=== PATIENT | male | born 1955 ===

== ENCOUNTER 2017-10-17 11:45 | Inpatient (IN) | payer MEDICAID ==
--- NOTE | 2017-10-17 13:06 | C.PDOC ---
History Of Present Illness 62yo male, presents to ER for evaluation of chronic leg pain. Patient is also requesting detox for alcohol abuse. He denies any chest pain, shortness of breath, headache. No other medical complaints. Time Seen by Provider: 10/17/17 12:45 Chief Complaint (Nursing): Substance Abuse History Per: Patient History/Exam Limitations: no limitations Onset/Duration Of Symptoms: Persistent Current Symptoms Are (Timing): Still Present Modifying Factor(s): Alcohol Past Medical History Reviewed: Historical Data, Nursing Documentation, Vital Signs Vital Signs: Last Vital Signs Temp 98.9 F 10/17/17 15:04 Pulse 129 H 10/17/17 15:04 Resp 18 10/17/17 15:04 BP 117/65 10/17/17 15:04 Pulse Ox 98 10/17/17 15:04 - Medical History PMH: Seizures (epilepsy) Surgical History: No Surg Hx Family History: States: No Known Family Hx - Social History Hx Alcohol Use: Yes Hx Substance Use: No - Immunization History Hx Tetanus Toxoid Vaccination: No Hx Influenza Vaccination: No Hx Pneumococcal Vaccination: No Review Of Systems Except As Marked, All Systems Reviewed And Found Negative. Cardiovascular: Negative for: Chest Pain Respiratory: Negative for: Shortness of Breath Gastrointestinal: Negative for: Abdominal Pain Neurological: Negative for: Headache Psych: Positive for: Other (requesting detox) Physical Exam - Physical Exam Appears: No Acute Distress Skin: Normal Color Extremity: Normal ROM (all extremities), Other (lower extremities with chronic venous stasuis changed with shallow ulcerations and pruritus) Neurological/Psych: Oriented x3, Normal Speech, Normal Cognition ED Course And Treatment - Laboratory Results Result Diagrams: 10/17/17 13:33 10/17/17 13:33 O2 Sat by Pulse Oximetry: 100 (RA) Pulse Ox Interpretation: Normal Medical Decision Making Medical Decision Making: Impression: Chronic alcohol abuse Plan: -- Crisis eval -- medical clearance Patient with mild alcohol withdrawl, tachycardic, will treat with PO ativan. Patient also with chronic venous stasis changes, bilat LE. Minor ulcerations, will start PO Anb. Pending podiatry eval, probable admission to detox. Disposition - Disposition Disposition: HOSPITALIZED Disposition Time: 15:36 Condition: STABLE Forms: [employer] (Kinyarwanda) - Clinical Impression Clinical Impression: Alcohol abuse, Alcohol withdrawal, Venous stasis dermatitis - Scribe Statement The provider has reviewed the documentation as recorded by the Scribe (Precious Cramer) Provider Attestation: All medical record entries made by the Scribe were at my direction and personally dictated by me. I have reviewed the chart and agree that the record accurately reflects my personal performance of the history, physical exam, medical decision making, and the department course for this patient. I have also personally directed, reviewed, and agree with the discharge instructions and disposition. Physician Patient Turnover Patient Signed Over To: Dave Vaca Handoff Comments: pending podiatry eval and final dispo detox vs medicine
[2017-10-17 13:39] LABS: BASO # 0.1 K/uL (0.0-0.2); BASO % 0.7 % (0.0-2.0); EOS # 0.7 K/uL (0.0-0.7); EOS % 7.6 % (0.0-4.0); HEMOGLOBIN 13.1 g/dL (12.0-18.0); LYMPH # 0.9 K/uL (1.0-4.3); LYMPH % 10.9 % (20.0-40.0); MEAN CELL VOLUME 89.1 fL (80.0-94.0); MEAN CORPUSCULAR HEMOGLOBIN 30.1 pg (27.0-31.0); MEAN CORPUSCULAR HGB CONC 33.8 g/dL (33.0-37.0); MEAN PLATELET VOLUME 7.4 fL (7.2-11.7); MONO # 0.8 K/uL (0.0-0.8); MONO % 8.7 % (0.0-10.0); NEUT # 6.2 K/uL (1.8-7.0); NEUT % 72.1 % (50.0-75.0); NRBC % 0.1 % (0.0-2.0); RBC 4.34 Mil/uL (4.40-5.90); RED CELL DISTRIBUTION WIDTH 14.9 % (11.5-14.5); WHITE BLOOD COUNT 8.6 K/uL (4.8-10.8)
[2017-10-17 13:47] LABS: SQUAMOUS EPITHIAL < 1 /hpf (0-5); URINE BILIRUBIN NEGATIVE (NEGATIVE); URINE BLOOD 2+ (NEGATIVE); URINE CLARITY Clear (Clear); URINE COLOR Yellow (YELLOW); URINE GLUCOSE (UA) NORMAL (Normal); URINE LEUKOCYTE ESTERASE NEG Leu/uL (Negative); URINE NITRATE NEGATIVE (NEGATIVE); URINE PROTEIN 2+ mg/dL (NEGATIVE)
[2017-10-17 14:01] LABS: ALB/GLOB RATIO 0.8 (1.0-2.1); ALBUMIN 3.4 g/dL (3.5-5.0); ALT/SGPT 28 U/L (21-72); AST/SGOT 63 U/L (17-59); BARBITURATES, UR NEGATIVE (NEGATIVE); BENZODIAZEPINES, UR NEGATIVE (NEGATIVE); BLOOD UREA NITROGEN 2 mg/dL (9-20); CALCIUM 8.2 mg/dl (8.6-10.4); GFR AFRICAN-AMERICAN > 60; GFR NON-AFRICAN AMERICAN > 60; OPIATES, UR NEGATIVE (NEGATIVE); PHENCYCLIDINE, UR NEGATIVE (NEGATIVE)
--- NOTE | 2017-10-17 16:47 | CP.PCM.CON ---
History of Present Illness - History of Present Illness History of Present Illness: Podiatry Consult Note- Dr. Starr: This is a 62 yo undomiciled male patient who is seen in the ED today for b/l leg pain. Pt states that he is here for detox due to his alcohol abuse. Pt says that his legs swell sometimes and that he has dry skin to his legs. Pt appears lethargic during interview and is requesting a bed to sleep. Does complain of some slight tenderness to the anterior legs b/l, denies itchiness. Denies any other pedal complaints. Denied f/n/v/c/sob/cp/weakness or dizziness. Review of Systems - Review of Systems Review of Systems: All systems reviewed and found neg outside HPI Past Patient History - Past Social History Smoking Status: Never Smoked - NEUROLOGICAL Hx Seizures: Yes (epilepsy) - PSYCHIATRIC Hx Substance Use: No - SURGICAL HISTORY Hx Surgeries: No Meds Allergies/Adverse Reactions: Allergies Allergy/AdvReac Type Severity Reaction Status Date / Time No Known Allergies Allergy Verified 10/17/17 11:58 Physical Exam - Constitutional Appears: No Acute Distress, Unkempt - Extremities Exam Additional comments: BL LE exam: VASC- pedal pulses are palpable bl, skin temp runs warm to cool (proximal to distal) bl, cap refill < 3 sec to all digits, +1 pitting edema noted to b/l ant leg NEURO- gross and protective pedal sensation are intact bl DERM- lichenification noted to anterior legs b/l, small and superficial ulceration noted to anterior right leg, neg ulcerations left leg, b/l anterior legs appear glossy (consistent with venous stasis dermatitis), no signs infection, neg increased warmth, neg fluctuance MSK:slight tenderness to palp ant legs b/l, neg pain on compression post legs b/ l - Psychiatric Exam Psychiatric exam: Normal Affect, Normal Mood Results - Vital Signs Recent Vital Signs: Last Vital Signs Temp 98.9 F 10/17/17 15:04 Pulse 129 H 10/17/17 15:04 Resp 18 10/17/17 15:04 BP 117/65 10/17/17 15:04 Pulse Ox 100 10/17/17 15:38 - Labs Result Diagrams: 10/17/17 13:33 10/17/17 13:33 Labs: Laboratory Results - last 24 hr 10/17/17 10/17/17 10/17/17 13:33 13:33 13:33 WBC 8.6 RBC 4.34 L Hgb 13.1 Hct 38.6 MCV 89.1 MCH 30.1 MCHC 33.8 RDW 14.9 H Plt Count 275 MPV 7.4 Neut % (Auto) 72.1 Lymph % (Auto) 10.9 L [place] % (Auto) 8.7 Eos % (Auto) 7.6 H Baso % (Auto) 0.7 Neut # 6.2 Lymph # 0.9 L [place] # 0.8 Eos # 0.7 Baso # 0.1 Sodium 132 Potassium 3.4 L Chloride 97 L Carbon Dioxide 28 Anion Gap 11 BUN 2 L Creatinine 0.6 L Est GFR ( Amer) > 60 Est GFR (Non-Af Amer) > 60 Random Glucose 123 H Calcium 8.2 L Total Bilirubin 0.8 AST 63 H ALT 28 Alkaline Phosphatase 53 Total Protein 7.5 Albumin 3.4 L Globulin 4.1 H Albumin/Globulin Ratio 0.8 L Urine Color Yellow Urine Clarity Clear Urine pH 6.0 Ur Specific [place] 1.008 Urine Protein 2+ H Urine Glucose (UA) Normal Urine Ketones Negative Urine Blood 2+ H Urine Nitrate Negative Urine Bilirubin Negative Urine Urobilinogen 2.0 Ur Leukocyte Esterase Neg Urine WBC (Auto) < 1 Urine RBC (Auto) 24 H Ur Squamous Epith Cells < 1 Urine Opiates Screen Urine Methadone Screen Ur Barbiturates Screen Ur Phencyclidine Scrn Ur Amphetamines Screen U Benzodiazepines Scrn U Oth Cocaine Metabols U Cannabinoids Screen Alcohol, Quantitative 34 H 10/17/17 13:33 WBC RBC Hgb Hct MCV MCH MCHC RDW Plt Count MPV Neut % (Auto) Lymph % (Auto) [place] % (Auto) Eos % (Auto) Baso % (Auto) Neut # Lymph # [place] # Eos # Baso # Sodium Potassium Chloride Carbon Dioxide Anion Gap BUN Creatinine Est GFR ( Amer) Est GFR (Non-Af Amer) Random Glucose Calcium Total Bilirubin AST ALT Alkaline Phosphatase Total Protein Albumin Globulin Albumin/Globulin Ratio Urine Color Urine Clarity Urine pH Ur Specific [place] Urine Protein Urine Glucose (UA) Urine Ketones Urine Blood Urine Nitrate Urine Bilirubin Urine Urobilinogen Ur Leukocyte Esterase Urine WBC (Auto) Urine RBC (Auto) Ur Squamous Epith Cells Urine Opiates Screen Negative Urine Methadone Screen Negative Ur Barbiturates Screen Negative Ur Phencyclidine Scrn Negative Ur Amphetamines Screen Negative U Benzodiazepines Scrn Negative U Oth Cocaine Metabols Negative U Cannabinoids Screen Negative Alcohol, Quantitative Assessment & Plan - Assessment and Plan (Free Text) Assessment: 62 yo male patient with chronic venous stasis dermatitis b/l lower extremities, presents for alcohol detox Plan: Pt S&E at bedside in ED Plan discussed with Dr. Starr and Dr. Vaca Chart, labs and vitals reviewed Recommended bactroban ointment be applied bid to right ant leg wound and ALIE compression wraps to b/l LE Stable per podiatry
[2017-10-17] MEDS ORDERED: Thiamine 100 mg/ml Inj IV ONE (17:34)
[2017-10-17] MEDS ORDERED: Sodium Chloride 0.9% 1,000 ML IV ONE (17:36)
[2017-10-17 17:50] LABS: MAGNESIUM 1.6 mg/dL (1.6-2.3)
[2017-10-17] MEDS ORDERED: Thiamine 100 mg/ml Inj ONE (17:59)
[2017-10-17] MEDS ORDERED: Iodixanol 320 MG/ML 100 ML BOTTLE IV ONE (19:44)
--- NOTE | 2017-10-17 22:05 | CT ---
EXAM: CT Angiography Chest With Intravenous Contrast EXAM DATE/TIME: Exam ordered 10/17/2017 6:47 PM CLINICAL HISTORY: 62 years old, male; Signs and symptoms; Other: Tachycardia TECHNIQUE: Axial computed tomographic angiography images of the chest with intravenous contrast using pulmonary embolism protocol. All CT scans at this facility use one or more dose reduction techniques, viz.: automated exposure control; ma/kV adjustment per patient size (including targeted exams where dose is matched to indication; i.e. head); or iterative reconstruction technique. MIP reconstructed images were created and reviewed. Coronal and sagittal reformatted images were created and reviewed. CONTRAST: 100 mL of VISIPAQUE 320 administered intravenously. COMPARISON: No relevant prior studies available. FINDINGS: Pulmonary arteries: Unremarkable. No pulmonary embolism. Aorta: No acute findings. No thoracic aortic aneurysm. Lungs: A 6 mm pulmonary nodule is noted in the right middle lobe (series 4 image 76). A granuloma is noted in the right lower lobe (series 2 image 144). Pleural space: Unremarkable. No significant effusion. No pneumothorax. Heart: Unremarkable. No cardiomegaly. No significant pericardial effusion. No evidence of RV dysfunction. Bones/joints: Degenerative changes are noted of the dorsal spine. No acute fracture. No dislocation. Soft tissues: Unremarkable. Lymph nodes: Unremarkable. No enlarged lymph nodes. IMPRESSION: 1. No pulmonary embolism. 2. 6 mm pulmonary nodule in the right middle lobe. Recommend follow-up chest CT at 3-6 months to confirm persistence. If stable, chest CT every year until 5 years.
[2017-10-17] MEDS ORDERED: Multivitamin (MVI) 10 ML, Thiamine 100 MG, Folic Acid 1 MG in Sodium Chloride 0.9% 1,00... IV ONE (22:50)
[2017-10-18] MEDS ORDERED: MethylPREDNISolone 40 mg Vial IVP STA (00:24)
[2017-10-18] MEDS ORDERED: DiphenhydrAMINE 50 mg/ml Inj IVP STA (00:24)
[2017-10-18] MEDS ORDERED: DiphenhydrAMINE 50 mg/ml Inj ONE (00:26)
--- NOTE | 2017-10-18 09:13 | RAD ---
HISTORY: cough COMPARISON: No prior. TECHNIQUE: Chest PA and lateral FINDINGS: LUNGS: No active pulmonary disease. PLEURA: No significant pleural effusion identified. No pneumothorax apparent. CARDIOVASCULAR: Normal. OSSEOUS STRUCTURES: Diffuse idiopathic skeletal hyperostosis. Degenerative changes. Old right posterior 5th rib fracture VISUALIZED UPPER ABDOMEN: Normal. OTHER FINDINGS: None. IMPRESSION: No active disease.
[2017-10-18] MEDS ORDERED: Multivitamin (MVI) 10 ML, Thiamine 100 MG, Folic Acid 1 MG in Sodium Chloride 0.9% 1,00... IV ONE (10:00)
[2017-10-18] MEDS: Multiple Vitamins Tab PO SCH (11:33)
[2017-10-18] MEDS: Enoxaparin 40 mg Syringe SC SCH (11:33)
--- NOTE | 2017-10-18 13:34 | PCM.BM ---
<Nuvia Nails - Last Filed: 10/18/17 13:32> Treatment Plan Problems - Problems identified on initial assessmt Potential for alcohol withdrawals Date Initiated: 10/18/17 Assessment reference: NA Status: Active Treatment assets and liabiliti Patient Assests: adapts well, cooperative, motivated Patient Liabilities: substance abuse, medical problems - Milieu Protocol Maintain good personal hygiene: daily Encourage regular showers, daily Remind patient to perform daily oral care, daily Assist patient to perform ADL's Conduct patient checks and document Observation sheet: Q15 minutes Maintain personal safety: every shift Educate patient to report safety concerns to staff, every shift Monitor environment for contraband/sharps Medication safety: Monitor for expected outcome, potential side effects: every shift, Assess barriers to learning: every shift, Assess readiness for medication education: every shift <Elsi Young - Last Filed: 10/21/17 11:28> - Diagnosis (1) Alcohol use disorder, severe, dependence Status: Acute Interventions: 10/21/17 11:27 * Assess 7x/week regarding severity of withdrawal * Educate regarding risks, benefits, side effects and alternatives of medications * Use Motivational Interviewing for abstinence * Use CBT for relapse prevention * Medication management for withdrawal symptoms * Encourage medication assisted treatment *
--- NOTE | 2017-10-18 13:48 | PCM.PSYCH ---
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 Patient is a 62 Wolof speaking single male patient. The patient has 1 adult child, is not employed, and his currently homeless. The patient is a poor historian, however, he reports drinking a lot of alcohol, especially vodka. He reports that he will drink anything, including gasoline. The patient reports that when he cannot drink, he gets nervous and sweaty. He reports having a seizure 3 months ago after not drinking. The patient denies the use of drugs and tobacco (quit 25 years ago). The patient is also complaining of pain due to ulcers on both his legs, he reports that he does not know how he got them. Med Hx: Alcoholism, Leg Ulcers, a little diabetes Fam Hx: unknown. Current Medications: Active Medications Generic Name Dose Route Start Last Admin Trade Name Freq PRN Reason Stop Dose Admin Chlordiazepoxide 25 mg 10/18/17 08:53 Librium PO Q4H PRN Alcohol withdrawal Chlordiazepoxide 25 mg 10/18/17 12:00 10/18/17 11:33 Librium PO 10/23/17 11:59 25 mg Q6H PAMELA Administration Taper Clonidine HCl 0.1 mg 10/18/17 08:54 Catapres PO Q4H PRN Symptoms of alcohol withdrawl Diphenhydramine HCl 25 mg 10/18/17 08:54 Benadryl PO Q6H PRN Itching / Pruritus Enoxaparin Sodium 40 mg 10/18/17 10:00 10/18/17 11:33 Lovenox SC 40 mg DAILY PAMELA Administration Folic Acid 1 mg 10/18/17 10:00 10/18/17 11:33 Folic Acid PO 1 mg DAILY PAMELA Administration Multivitamins 1 tab 10/18/17 10:10/18/17 11:33 Hexavitamin PO 1 tab DAILY PAMELA Administration Thiamine HCl 100 mg 10/18/17 10:10/18/17 11:33 Vitamin B1 Tab PO 100 mg DAILY PAMELA Administration Trazodone HCl 50 mg 10/18/17 08:54 Desyrel PO HS PRN Insomnia Past Psychiatric History - Past Psychiatric History Previous Treatment History: None Pertinent Medical Hx (Current Medical&Sleep Prob, Allergies): Allergies Allergy/AdvReac Type Severity Reaction Status Date / Time No Known Allergies Allergy Verified 10/17/17 11:58 No Known Home Med 10/17/17 Review of Systems - Constitutional Constitutional: Sweats, Weakness - Neurological Neurological: Abnormal Gait, Lack of Coordination, Memory Loss, Tremor, Weakness - Psychiatric Psychiatric: Abnormal Sleep Pattern, Anxiety. absent: Auditory Hallucinations, Depression, Hallucinations, Homicidal Ideation, Panic Attacks, Suicidal Ideation Mental Status Examination - Personal Presentation Personal Presentation: Looks stated age - Affect Affect: Constricted - Motor Activity Motor Activity: Calm - Reliability in Providing Information Reliability in Providing Information: Poor, due to cognitve impairment - Speech Speech: Disorganized - Mood Mood: Neutral - Formal Thought Process Formal Thought Process: No Impairment - Obsessions/Compulsions Obsessions: None Compulsions: None - Cognitive Functions Orientation: Person, Place, Situation, Time Sensorium: Alert Attention/Concentration: Attentive Abstract Thinking: Campbell Estimate of Intelligence: Below average Judgement: Intact, as evidence by: Insight regarding need for hospitalization Memory: Recent intact, as evidence by: Ability to recall events of the day, Remote intact, as evidenced by: Abilit to recall sig. life events - Risk Risk: Seizure, Withdrawal, Diminished functioning - Limitations Limitations: Other Additional comments: Homeless, unemployed, language barrier DSM 5 DX - DSM 5 DSM 5 Diagnosis: Alcohol Withdrawal Alcohol Use d/o - severe - Recommended/Plan of Treatment Treatment Recommendations and Plan of Treatment: Librium taper As needed medications All risks, benefits and alternatives of the meds discussed, and the pt agreed and understood. Attend groups and activities Supportive therapy and psychoeducation [place] for abstinence CBT for relapse prevention Encourage MAT Refer to rehab or IOP, and self-help groups Smoking cessation with [place] Nicotine patch 35 min Projected ELOS: 4-5 days Prognosis: good with treatment - Smoking Cessation Smoking Cessation Initiated: Yes
[2017-10-19] MEDS: Enoxaparin 40 mg Syringe SC SCH (09:44)
[2017-10-19] MEDS: Multiple Vitamins Tab PO SCH (09:45)
--- NOTE | 2017-10-19 14:04 | PCM.PYCHPN ---
Psychiatric Progress Note - Psychiatric Progress Note Patient seen today, length of contact: 15 min Patient Chief Complaint: "i did not sleep" Problems Identified/Issues Discussed: The pt is seen, chart reviewed, case discussed with staff. The pt is compliant with medications and reports no side-effects. Patient reports feeling worse because he got little sleep. His roommate was very loud and in pain last night so that kept him up. Pt also reports that his legs are hurting him due to the ulcers. Pt needs more time to stabilize. After care discussed, support and psychoeducation given. Medication Change: Yes (detox changes daily) Medical Record Reviewed: Yes Mental Status Examination - Cognitive Function Orientation: Person, Place, Situation, Time Memory: Intact Attention: WNL Concentration: WNL Association: WNL Fund of Knowledge: WNL - Mood Mood: Neutral - Affect Affect: Constricted - Speech Speech: Appropriate - Formal Thought Process Formal Thought Process: No Impairment - Suicidal Ideation Suicidal Ideation: No - Homicidal Ideation Homicidal Ideation: No Goal/Treatment Plan - Goal/Treatment Plan Need for Continued Stay: Remain at risks for inpatient hospitalization, Discharge may exacerbated symptoms Progress Toward Problem(s) and Goals/Treatment Plan: Librium taper As needed medications All risks, benefits and alternatives of the meds discussed, and the pt agreed and understood. Attend groups and activities Supportive therapy and psychoeducation [place] for abstinence CBT for relapse prevention Encourage MAT Refer to rehab or IOP, and self-help groups Smoking cessation with [place] Nicotine patch Estimated Date of D/C: 10/23/17 - Smoking Cessation Smoking Cessation Initiated: Yes
--- NOTE | 2017-10-19 18:34 | CP.PCM.CON ---
History of Present Illness - History of Present Illness History of Present Illness: 62-year-old male who was admitted for alcohol detox had complained of lower extremity pain and underwent CT chest angiogram to rule out pulmonary embolism. There is no evidence of pulmonary embolism but patient is found to have a 6 mm right middle lobe nodule. Patient denies any fever, chills, night sweats, cough, phlegm, chest tightness, wheezing, hemoptysis or weight loss. Review of Systems - Review of Systems All systems: reviewed and no additional remarkable complaints except (See HPI rest negative) Past Patient History - Past Social History Smoking Status: Former Smoker - NEUROLOGICAL Hx Seizures: Yes (epilepsy) - MUSCULOSKELETAL/RHEUMATOLOGICAL Hx Falls: Yes - PSYCHIATRIC Hx Substance Use: No - SURGICAL HISTORY Hx Surgeries: No - ANESTHESIA Hx Anesthesia: No Hx Anesthesia Reactions: No Meds Allergies/Adverse Reactions: Allergies Allergy/AdvReac Type Severity Reaction Status Date / Time No Known Allergies Allergy Verified 10/17/17 11:58 - Medications Medications: Current Medications Chlordiazepoxide (Librium) 25 mg PO Q4H PRN PRN Reason: Alcohol withdrawal Chlordiazepoxide (Librium) 25 mg PO Q8H [facility] PRN Reason: Taper Stop: 10/23/17 11:59 Last Admin: 10/19/17 11:06 Dose: 25 mg Clonidine HCl (Catapres) 0.1 mg PO Q4H PRN PRN Reason: Symptoms of alcohol withdrawl Diphenhydramine HCl (Benadryl) 25 mg PO Q6H PRN PRN Reason: Itching / Pruritus Enoxaparin Sodium (Lovenox) 40 mg SC DAILY [facility] Last Admin: 10/19/17 09:44 Dose: 40 mg Folic Acid (Folic Acid) 1 mg PO DAILY [facility] Last Admin: 10/19/17 09:45 Dose: 1 mg Lactic Acid (Lac-Hydrin 12% Lotion (225 G)) 0 gm EXT BID [facility] Multivitamins (Hexavitamin) 1 tab PO DAILY [facility] Last Admin: 10/19/17 09:45 Dose: 1 tab Thiamine HCl (Vitamin B1 Tab) 100 mg PO DAILY [facility] Last Admin: 10/19/17 09:45 Dose: 100 mg Trazodone HCl (Desyrel) 100 mg PO HS PRN PRN Reason: Insomnia Physical Exam - Head Exam Head Exam: NORMAL INSPECTION - Eye Exam Eye Exam: Normal appearance - ENT Exam ENT Exam: Mucous Membranes Moist - Neck Exam Neck exam: Positive for: Normal Inspection - Respiratory Exam Respiratory Exam: Clear to Auscultation Bilateral - Cardiovascular Exam Cardiovascular Exam: REGULAR RHYTHM, +S1, +S2 - GI/Abdominal Exam GI & Abdominal Exam: Normal Bowel Sounds, Soft - Extremities Exam Extremities exam: Positive for: normal inspection Results - Vital Signs Recent Vital Signs: Last Vital Signs Temp 98.2 F 10/19/17 16:58 Pulse 108 H 10/19/17 16:58 Resp 18 10/19/17 16:58 BP 147/88 10/19/17 16:58 Pulse Ox 97 10/19/17 16:58 - Labs Result Diagrams: 10/17/17 13:33 10/17/17 13:33 Assessment & Plan - Assessment and Plan (Free Text) Assessment: Right middle lobe lung nodule Nodule is an incidental finding CT chest shows no evidence of acute pulmonary disease Patient needs outpatient follow-up of lung nodule Please refer patient to see me as outpatient Thank you
[2017-10-19] MEDS: Ammonium Lactate 12% Lotion (225 g) EXT SCH (19:57)
--- NOTE | 2017-10-20 03:56 | CARD ---
APPROVED REPORT EKG Measurement Heart [id number] <Conclusion> Sinus tachycardia Left axis deviation Right bundle branch block Possible Lateral infarct, age undetermined Inferior infarct, age undetermined Abnormal ECG
[2017-10-20] MEDS: Multiple Vitamins Tab PO SCH (10:26)
[2017-10-20] MEDS: Enoxaparin 40 mg Syringe SC SCH (10:27)
[2017-10-20] MEDS: Ammonium Lactate 12% Lotion (225 g) EXT SCH ×2 (10:27→17:53)
--- NOTE | 2017-10-20 13:32 | PCM.PYCHPN ---
Psychiatric Progress Note - Psychiatric Progress Note Patient seen today, length of contact: 15 min Patient Chief Complaint: "my legs hurt Problems Identified/Issues Discussed: The pt is seen, chart reviewed, case discussed with staff. The pt is compliant with medications and reports no side-effects. Patient reports feeling a little better than yesterday. He reports sleeping well and eating well. Patient reports his tremors are not bad, however, his legs are still hurt him. worse because he got little sleep. Pt needs more time to stabilize. After care discussed, support and psychoeducation given. Medication Change: Yes (detox changes daily) Medical Record Reviewed: Yes Mental Status Examination - Cognitive Function Orientation: Person, Place, Situation, Time Memory: Intact Attention: WNL Concentration: WNL Association: WNL Fund of Knowledge: [facility] Decription of patient's judgement and insights: fair - Mood Mood: Neutral - Affect Affect: Constricted - Speech Speech: Appropriate - Formal Thought Process Formal Thought Process: No Impairment Psychotic Thoughts and Behaviors: none - Suicidal Ideation Suicidal Ideation: No - Homicidal Ideation Homicidal Ideation: No Goal/Treatment Plan - Goal/Treatment Plan Need for Continued Stay: Remain at risks for inpatient hospitalization, Discharge may exacerbated symptoms Progress Toward Problem(s) and Goals/Treatment Plan: Librium taper As needed medications All risks, benefits and alternatives of the meds discussed, and the pt agreed and understood. Attend groups and activities Supportive therapy and psychoeducation [place] for abstinence CBT for relapse prevention Encourage MAT Refer to rehab or IOP, and self-help groups Smoking cessation with [place] Nicotine patch Estimated Date of D/C: 10/23/17
[2017-10-20] MEDS ORDERED: Permethrin 1% Kit 59 ML BOTTLE TOP ONE (16:00)
[2017-10-20] MEDS ORDERED: Simethicone 80 mg Chewtab PO PRN (19:44)
--- NOTE | 2017-10-21 09:33 | PCM.PYCHPN ---
Psychiatric Progress Note - Psychiatric Progress Note Patient seen today, length of contact: 15 min Patient Chief Complaint: I am feeling better.' Problems Identified/Issues Discussed: Patient seen and evaluated, chart reviewed and discussed with the nurse. The patient reports improvement in his mood and reports improvement in the withdrawal symptoms. As per the staff, he is tolerating detox medications and denies any side effects. Patient has something anxiety and denies any suicidal ideation or homicidal ideation. Symptoms are improving but he needs more time for stabilization. Supportive therapy and psychoeducation were given. Medication Change: Yes (detox changes daily) Medical Record Reviewed: Yes Mental Status Examination - Cognitive Function Orientation: Person, Place, Situation, Time Memory: Intact Attention: WNL Concentration: WNL Association: WNL Fund of Knowledge: WNL - Mood Mood: Neutral - Affect Affect: Constricted - Speech Speech: Appropriate - Formal Thought Process Formal Thought Process: No Impairment - Suicidal Ideation Suicidal Ideation: No - Homicidal Ideation Homicidal Ideation: No Goal/Treatment Plan - Goal/Treatment Plan Need for Continued Stay: Remain at risks for inpatient hospitalization, Discharge may exacerbated symptoms Progress Toward Problem(s) and Goals/Treatment Plan: Alcohol Withdrawal Alcohol Use d/o - severe Librium taper As needed medications All risks, benefits and alternatives of the meds discussed, and the pt agreed and understood. Attend groups and activities Supportive therapy and psychoeducation [place] for abstinence CBT for relapse prevention Encourage MAT Refer to rehab or IOP, and self-help groups Smoking cessation with [place] Nicotine patch Estimated Date of D/C: 10/23/17 - Smoking Cessation Smoking Cessation Initiated: No
[2017-10-21] MEDS: Multiple Vitamins Tab PO SCH (10:45)
[2017-10-21] MEDS: Ammonium Lactate 12% Lotion (225 g) EXT SCH ×2 (10:45→19:18)
[2017-10-21] MEDS: Enoxaparin 40 mg Syringe SC SCH (10:46)
[2017-10-22] MEDS: Multiple Vitamins Tab PO SCH (10:03)
[2017-10-22] MEDS: Enoxaparin 40 mg Syringe SC SCH (10:06)
[2017-10-22] MEDS: Ammonium Lactate 12% Lotion (225 g) EXT SCH ×2 (10:07→18:31)
--- NOTE | 2017-10-22 12:32 | PCM.PYCHPN ---
Psychiatric Progress Note - Psychiatric Progress Note Patient seen today, length of contact: 15 min Patient Chief Complaint: I'm feeling little better Problems Identified/Issues Discussed: Patient seen and evaluated, chart reviewed and discussed with the nurse. The patient reports improvement in his mood and reports improvement in the withdrawal symptoms. He still reports anxiety, headaches and sweating. As per the nurse patient is improving but still reports of anxiety. Patient has something anxiety and denies any suicidal ideation or homicidal ideation. Patient is tolerating detox medications and denies any side effects. Symptoms are improving but he needs more time for stabilization Supportive therapy and psychoeducation were given. Medication Change: Yes (detox changes daily) Medical Record Reviewed: Yes Mental Status Examination - Cognitive Function Orientation: Person, Place, Situation, Time Memory: Intact Attention: WNL Concentration: WNL Association: WNL Fund of Knowledge: WNL - Mood Mood: Neutral - Affect Affect: Constricted - Speech Speech: Appropriate - Formal Thought Process Formal Thought Process: No Impairment - Suicidal Ideation Suicidal Ideation: No - Homicidal Ideation Homicidal Ideation: No Goal/Treatment Plan - Goal/Treatment Plan Need for Continued Stay: Remain at risks for inpatient hospitalization, Discharge may exacerbated symptoms Progress Toward Problem(s) and Goals/Treatment Plan: Alcohol Withdrawal Alcohol Use d/o - severe Librium taper As needed medications All risks, benefits and alternatives of the meds discussed, and the pt agreed and understood. Attend groups and activities Supportive therapy and psychoeducation [place] for abstinence CBT for relapse prevention Encourage MAT Refer to rehab or IOP, and self-help groups Smoking cessation with [place] Nicotine patch Estimated Date of D/C: 10/23/17 - Smoking Cessation Smoking Cessation Initiated: No
--- NOTE | 2017-10-23 09:50 | PCM.PYCHDC ---
Mental Status Examination - Mental Status Examination Orientation: Person, Place, Situation, Time Memory: Impaired Mood: Anxious Affect: Constricted Speech: Slurred Attention: WNL Concentration: Poor Association: WNL Fund of Knowledge: Poor Formal Thought Process: No Impairment Psychotic Thoughts and Behaviors: none Suicidal Ideation: No Current Homicidal Ideation?: No Discharge Summary - Discharge Note Reason for Hospitalization: Alcohol detox Laboratory Data: Abnormal Lab Results 10/22/17 10/22/17 10/23/17 07:21 16:50 08:38 POC Glucose (mg/dL) 87 85 84 Consultations:: List each consultation separately and include: 1. Reason for request. 2. Findings. 3. Follow-up Summary of Hospital Course include:: 1. Description of specific treatment plan utilized for patients during their course of treatmen. 2. Summarize the time- course for resolution of acute symptoms and/or regressed behaviors. 3. Describe issues identified and worked on during hospitalization. 4. Describe medication utilized. 5. Describe medical problems identified and treated. 6. Reassessment of suicide risk Summary of Hospital Course: He is seen with a respiratory therapist, chart reviewed and case discussed. On admission: Patient is a 62 [place] speaking single male patient. The patient has 1 adult child, is not employed, and his currently homeless. The patient is a poor historian, however, he reports drinking a lot of alcohol, especially vodka. He reports that he will drink anything, including gasoline. The patient reports that when he cannot drink, he gets nervous and sweaty. He reports having a seizure 3 months ago after not drinking. The patient denies the use of drugs and tobacco (quit 25 years ago). The patient is also complaining of pain due to ulcers on both his legs, he reports that he does not know how he got them. Med Hx: Alcoholism, Leg Ulcers, a little diabetes Fam Hx: unknown. Hospital course: The pt was admitted and started on treatment with psychotherapy, support, psychoeducation and medications. DC and CBT used. The pt attended groups and activities, as well as milieu therapy. All the risks and benefits of medications are discussed and the patient understood and agreed. The pt improved with the treatments provided. He was mostly in bed. We also found lice and gave Nix tx and changed all his clothes with new ones. After care discussed with the patient. He went to [facility] - Diagnosis (1) Alcohol use disorder, severe, dependence Status: Acute - Final Diagnosis (DSM 5) Condition upon Discharge: STABLE Disposition: REHAB FACILITY/REHAB UNIT Follow-up Treatment Plan: He did not want any meds, and also [facility] does not allow psych meds anymore Follow after care plan as discussed. Use relapse prevention skills Return to ER or call 911 if suicidal, homicidal or symptoms relapse. Stay away from stress, alcohol and drugs. See primary doctor regularly and get labs. - Smoking Cessation Smoking Cessation Medication prescribed: No - Antipsychotic Medications Pt discharged on 2 or more routine antipsychotic medications: No
[2017-10-23 10:07] VITALS: BP 113/72; PULSE 98; RESP 19; TEMP 97.8; O2SAT 99
[2017-10-23] MEDS: Multiple Vitamins Tab PO SCH (10:15)
[2017-10-23] MEDS: Enoxaparin 40 mg Syringe SC SCH (10:16)
[2017-10-23] MEDS: Ammonium Lactate 12% Lotion (225 g) EXT SCH (10:18)
== END 2017-10-23 11:00 | disposition home or self-care (01) | DRG 751 ==
LOC: C.ER 11:45 → C.9E 22:48 → C.7D 10-18 08:43
PROVIDERS: ADMIT Psychiatry & Neurology Psychiatry; ATTEND Psychiatry & Neurology Psychiatry
PROC: HZ2ZZZZ Detoxification Services for Substance Abuse Treatment (ICD-10-PCS; principal; 2017-10-17)
DX: F10.239 Alcohol dependence with withdrawal, unspecified (principal); F41.9 Anxiety disorder, unspecified; G40.909 Epilepsy, unspecified, not intractable, without status epilepticus; G89.29 Other chronic pain; I87.2 Venous insufficiency (chronic) (peripheral); I87.8 Other specified disorders of veins; Z87.891 Personal history of nicotine dependence